=== PATIENT | female | born 1960 | race African-American/Black ===

== ENCOUNTER 2019-06-04 22:47 | Emergency (ER) | payer OTHER ==
[~2019-06-04] VITALS: Ht 170.2 cm; Wt 112.0 kg
[2019-06-04] MEDS ORDERED: NAPROSYN500 MG PO (23:14)
[2019-06-04] MEDS ORDERED: VALACYCLOVIR500 MG PO (23:14)
[2019-06-04] MEDS ORDERED: ULTRAM50 MG PO (23:14)
[2019-06-04] MEDS ORDERED: HYDROCODONE/APAP 5MG-325MG TAB ONE (23:40)
[2019-06-04] MEDS ORDERED: HYDROCODONE/APAP 5MG-325MG TAB PO ONE (23:45)
== END 2019-06-05 00:19 | disposition home or self-care (01) ==
LOC: FSED 22:47
DX: B02.9 Zoster without complications (principal); I10 Essential (primary) hypertension; E11.9 Type 2 diabetes mellitus without complications; E78.5 Hyperlipidemia, unspecified
CPT/HCPCS: 99282

== ENCOUNTER 2020-03-18 22:46 | Emergency (ER) | payer OTHER ==
[~2020-03-18] VITALS: Ht 170.2 cm; Wt 119.7 kg
[~2020-03-18 22:46] MED LIST: NAPROSYN500 MG PO; ULTRAM50 MG PO; VALACYCLOVIR500 MG PO
--- NOTE | 2020-03-18 23:35 | Emergency Department Note ---
History of Present Illnes History of Present Illness Chief Complaint: General Medicine Complaints History of Present Illness This is a 59 year old female, with a history of IDDM, Hypertension, Hyperlipidemia and GERD, who present with pain in bilateral feet, ankles and lower legs for the past 3 months. Pt states that pain is worse with weight-bearing, but that they "hurt" constantly. She describes it as a constant "ache," without numbness or tingling. They hurt at rest or whether she is up ambulating, and they are tender to palpation. She has noted some intermittent swelling of BLE but there is no swelling today. She denies any new medications, but she has been on Norvasc for quite some time. She denies any trauma. Pt was prescribed Gabapentin by her PCP, but she never started it, due to various pote ntial "side effects" that she read about, and had concerns with. Patient has not taken any Tylenol or Ibuprofen/NSAIDS for the pain. Historian: Patient Arrival Mode: Car Stave Cutter Required: No Onset (how long ago): month(s) (3) Location: BLE Quality: ache, hurt Radiation: Reports non-radiation Severity: moderate Onset quality: gradual Duration (how long): month(s) (3) Timing of current episode: constant Progression: worsening Context: Denies recent illness, Denies recent surgery, Denies recent travel, Denies trauma/injury, Denies new medications Relieving factors: none Exacerbating factors: none Associated symptoms: Denies cough, Denies fever/chills, Denies nausea/vomiting Treatments prior to arrival: none Risk factors: diabetes, obesity, statin use Past Medical/Family History Physician Review I have reviewed the patient's past medical and family history. Any updates have been documented here. Past Medical History Recent Fever: No Clinical Suspicion of Infectio: No New/Unexplained Change in Ment: No Past Medical History: Hypertension, Diabetes (IDDM), GERD, Hyperlipedemia Past Surgical History: (x1) Other Surgery: R-HAND Social History Smoking Cessation: Never Smoker Alcohol Use: None Any Illegal Drug Use: No TB Exposure/Symptoms: No Physically hurt or threatened: No Family History Family history of heart diseas: No Other Last Tetanus: UTD Any Pre-Existing Lines (PICC,: No Is patient up to date on immun: Yes Review of Systems Review of Systems Constitutional: Denies chills, Denies fever EENTM: Reports no symptoms Cardiovascular: Reports no symptoms; Denies edema, Denies palpitations Respiratory: Reports no symptoms Gastrointestinal: Denies nausea, Denies vomiting Genitourinary: Denies discharge Musculoskeletal: Denies back pain, Denies gout, Denies joint swelling Integumentary: Denies change in color, Denies rash Neurological: Denies numbness, Denies paresthesia Psychological: Reports no symptoms Hematological/Lymphatic: Reports no symptoms Review of other systems: All other systems negative Physical Exam Related Data Allergies: Coded Allergies: metformin (Verified Allergy, Unknown, HIVES, 03/18/20) Triage Vital Signs Vital Signs Date Time Temp Pulse Resp B/P (MAP) Pulse Ox O2 Delivery O2 Flow Rate FiO2 03/18/20 23:10 97.3 80 18 170/84 100 Room Air Physical Exam CONSTITUTIONAL Constitutional: Present well-developed, Present well-nourished, Present other (looks older than her stated age;) HENT HENT: Present normocephalic, Present atraumatic, Present oropharynx clear/moist, Present nose normal EYES Eyes: Reports PERRL, Reports conjunctivae normal NECK Neck: Present ROM normal; Absent thyromegaly PULMONARY Pulmonary: Present effort normal, Present breath sounds normal CARDIOVASCULAR Cardiovascular: Present regular rhythm, Present heart sounds normal, Present capillary refill normal, Present normal rate GASTROINTESTINAL Abdominal: Present soft, Present nontender GENITOURINARY Genitourinary: Present exam deferred SKIN Skin: Present warm, Present dry; Absent erythema, Absent rash MUSCULOSKELETAL Musculoskeletal: Present ROM normal, Present tenderness (Strong DP/PT pulses in BLE; soft tissue tenderness of bilateral distal tib/fib, without crepitus, warmth or redness of the skin, no skin lesions); Absent edema, Absent deformity NEUROLOGICAL Neurological: Present alert, Present oriented x 3, Present no gross motor or sensory deficits PSYCHOLOGICAL Psychological: Present mood/affect normal, Present judgement normal Assessment & Plan Medical Decision Making MDM - Begin the Gabapentin, that was previously prescribed for you, as directed on the bottle, beginning tomorrow. Increase the dose, as directed. - You may take the Tramadol, as needed, but do not take it at the same time as you take the Gabapentin. - Also, patient may consider holding the Rosuvastatin x 4-6 weeks to see if this will help the leg pain, since this medication can cause muscle pain. Follow-up with your PCP, next week, regarding other health concerns and regarding your leg pain Assessment & Plan Final Impression: (1) Leg pain, bilateral (2) Peripheral neuropathy (3) Hypertension (4) Diabetes mellitus Depart Disposition: HOME, SELF-CARE Last Vital Signs Date Time Temp Pulse Resp B/P (MAP) Pulse Ox O2 Delivery O2 Flow Rate FiO2 03/18/20 23:10 97.3 80 18 170/84 100 Room Air Home Meds Active Scripts Tramadol Hcl (ULTRAM) 50 Mg Tablet, 1-2 TAB PO Q6H PRN for pain, #20 TAB 0 Refills DO NOT take and drive or operate machinery. Prov:BIJAL CM MD 03/19/20 Naproxen (NAPROSYN) 500 Mg Tablet, 500 MG PO BID PRN for PAIN for 7 Days, #15 Prov:DMITRY ELLIS MD 06/04/19 Tramadol Hcl (ULTRAM) 50 Mg Tablet, 50 MG PO TID PRN for PAIN for 5 Days, #15 TAB Prov:DMITRY ELLIS MD 06/04/19 Valacyclovir Hcl (VALACYCLOVIR) 500 Mg Tablet, 1000 MG PO TID for 7 Days, #21 TAB Prov:DMITRY ELLIS MD 06/04/19 BIJAL CM MD Mar 18, 2020 23:35
--- OUTSIDE RECORDS SUMMARY | 2020-03-18 23:51 | XMS REPORT | Continuity of Care Document ---
Author Author [facility] t Organization [facility] Address [address] [place] [address] Phone Unavailable Care Team Providers Care Miller Wood Flour Name Role Phone Shad LEON PCP Payers Payer Name Policy Type Policy Number Effective Date Expiration Date Step On Up Graphics [facility] [address] [id number] 2018 00:00 :00 [facility] Problems This patient has no known problems. Allergies, Adverse Reactions, Alerts This patient has no known allergies or adverse reactions. Medications Ordered Medication Name Filled Medication Name Start Date Stop Da te Current Medication? Ordering Clinician Indication Dosage Frequency Signature (SIG) Comments Components Source Naproxen (Naprosyn) 500 Mg Tablet Naproxen (Naprosyn) 500 Mg Tablet 2019-06-04 00:00:00 Yes David Harrell Md 500 Twice A Day as needed for Pain [facility] Tramadol Hcl (Ultram) 50 Mg Tablet Tramadol Hcl (Ultram) 50 Mg Tablet 2019-06-04 00:00:00 Yes David Harrell Md 50 Three Time s A Day as needed for Pain [facility] Valacyclovir Hcl (Valacyclovir) 500 Mg Tablet Valacycl ovir Hcl (Valacyclovir) 500 Mg Tablet 2019-06-04 00:00:00 Yes David Harrell Md 1 000 Three Times A Day [facility] Procedures This patient has no known procedures. Encounters Start Date/Time End Date/Time Encounter Type Admission Type Attendi [facility] Care Department Encounter ID Source 2019-06-04 22:47:00 2019-06-05 00:19:00 Departed Emergency Room [facility] [id number] [facility] Results Test Description Test Time Test Comments Results Result Comments Source SCR MAMM BILATERAL KONRAD CAD DIGITAL 2019-03-13 08:23:39 - SCR MAMM BILATERAL KONRAD CAD DIGITALBILATERAL DIGITAL SCREENING MAMMOGRAM 3D/2D WITH CAD: 03/05/2019CLINICAL: Asymptomatic. Digital breast tomosynthesis was performed in addition to routine CC and MLO views. Current mammographic images were evaluated by either a [place] M-Vu or a Quantitative Medicine ImageChecker CAD (computer aided detection system). Comparison is made to exams dated 09/26/2015 mammogram and ultrasound - [facility]. The tissue of both breasts is predominantly fatty. There are benign intramammary nodes in both breasts. No suspicious mass, architectural distortion, malignant type calcification, or lymph node abnormality detected. Breast architecture is stable compared to prior exams.IMPRESSION: BENIGNThere is no mammographic evidence of malignancy. Resume annual screening mammography in one year. Claire sanders/shelbyrad:03/13/2019 08:23:39 Assistant Associate Professor: Lilliam CAO, [facility]-RGletter sent: BIRADS 1- 2 Normal Mammogram BI-RADS: 2 Benign
[2020-03-19] MEDS ORDERED: ULTRAM50 MG PO (00:27)
[2020-03-19] MEDS ORDERED: TRAMADOL HCL 50 MG TAB PO ONE (00:30)
--- NOTE | 2020-03-19 00:40 | NUR ---
PT STATES HAS TAKEN TRAMADOL BEFORE WITHOUT DIFF.
[2020-03-19] MEDS ORDERED: TRAMADOL HCL 50 MG TAB ONE (00:57)
[2020-03-19 01:01] VITALS: BP 170/84
== END 2020-03-19 00:58 | disposition home or self-care (01) ==
LOC: FSED 23:49
DX: M79.605 Pain in left leg (principal); M79.604 Pain in right leg; E11.42 Type 2 diabetes mellitus with diabetic polyneuropathy; I10 Essential (primary) hypertension; E78.5 Hyperlipidemia, unspecified; K21.9 Gastro-esophageal reflux disease without esophagitis
CPT/HCPCS: 81003; 99283

== ENCOUNTER 2020-04-05 20:53 | Emergency (ER) | payer OTHER ==
[~2020-04-05] VITALS: Ht 170.2 cm; Wt 114.3 kg
[2020-04-05] MEDS ORDERED: MORPHINE SULFATE 2 MG/ML SYR 1ML IV STA (21:11)
[2020-04-05] MEDS ORDERED: SODIUM CHLORIDE 0.9% 1000ML 1,000 ML IV STA (21:11)
[2020-04-05] MEDS ORDERED: ONDANSETRON HCL INJ 2MG/ML 2ML 2 MG/ML VIAL IV STA (21:11)
[2020-04-05] MEDS ORDERED: SODIUM CHLORIDE 0.9% 1000ML 1,000 ML ONE (21:27)
[2020-04-05] MEDS ORDERED: ONDANSETRON HCL INJ 2MG/ML 2ML 2 MG/ML VIAL ONE (21:27)
[2020-04-05] MEDS ORDERED: MORPHINE SULFATE INJ 4 MG/ML INJ 1ML ONE (21:28)
[2020-04-05] MEDS ORDERED: SODIUM CHLORIDE 0.9% 50ML 50 ML ONE (21:52)
[2020-04-05] MEDS ORDERED: IOPAMIDOL 370 MG/ML 200 ML INFUS..BTL INJ ONE (21:53)
[2020-04-05 23:33] VITALS: BP 131/70
== END 2020-04-05 23:40 | disposition home or self-care (01) ==
LOC: FSED 21:30
DX: R10.84 Generalized abdominal pain (principal); K59.00 Constipation, unspecified; I10 Essential (primary) hypertension; E11.9 Type 2 diabetes mellitus without complications; E78.5 Hyperlipidemia, unspecified; K21.9 Gastro-esophageal reflux disease without esophagitis
CPT/HCPCS: 74177; 99284; J2270; J2405; J7030; Q9967

== ENCOUNTER 2021-04-22 21:08 | Emergency (ER) | payer OTHER ==
[2021-04-22] MEDS ORDERED: ULTRAM 50MG50 MG PO (21:41)
[2021-04-22] MEDS ORDERED: ACETAMINOPHEN500 MG PO (21:41)
== END 2021-04-22 22:04 | disposition home or self-care (01) ==
LOC: FSED 21:27
DX: M13.872 Other specified arthritis, left ankle and foot (principal); M13.871 Other specified arthritis, right ankle and foot; M79.605 Pain in left leg; M79.604 Pain in right leg; G62.9 Polyneuropathy, unspecified; I10 Essential (primary) hypertension; E11.9 Type 2 diabetes mellitus without complications; E78.5 Hyperlipidemia, unspecified; K21.9 Gastro-esophageal reflux disease without esophagitis
CPT/HCPCS: 99282

== ENCOUNTER 2022-04-18 21:42 | Emergency (ER) | payer OTHER ==
[~2022-04-18] VITALS: Ht 170.2 cm; Wt 122.5 kg
[~2022-04-18 21:42] MED LIST changes: +ACETAMINOPHEN500 MG PO; +ULTRAM 50MG50 MG PO
[2022-04-18] MEDS ORDERED: ACETAMINOPHEN 325 MG TAB PO ONE (22:15)
[2022-04-18] MEDS ORDERED: NITROGLYCERIN 2% OINT 1 GM PKT TOP ONE (22:15)
[2022-04-18] MEDS ORDERED: ASPIRIN 81 MG CHEW TAB PO ONE (22:15)
[2022-04-18] MEDS ORDERED: HYDRALAZINE HCL 20 MG/ML VIAL IV ONE (22:15)
[2022-04-18] MEDS ORDERED: ASPIRIN 325 MG TAB ONE (22:47)
[2022-04-18] MEDS ORDERED: HYDRALAZINE HCL 20 MG/ML VIAL ONE (22:48)
[2022-04-18] MEDS ORDERED: ACETAMINOPHEN 325 MG TAB ONE (22:48)
[2022-04-18] MEDS ORDERED: NITROGLYCERIN 2% OINT 1 GM PKT ONE (22:48)
== END 2022-04-19 00:10 | disposition home or self-care (01) ==
LOC: FSED 21:46
DX: R06.02 Shortness of breath (principal); I16.0 Hypertensive urgency; R07.9 Chest pain, unspecified; E11.65 Type 2 diabetes mellitus with hyperglycemia; I10 Essential (primary) hypertension; E78.5 Hyperlipidemia, unspecified; K21.9 Gastro-esophageal reflux disease without esophagitis
CPT/HCPCS: 71046; 80053; 82553; 83880; 84484; 85025; 93005; 99284; J0360